=== PATIENT | female | born 1985 | race Caucasian/White ===

== ENCOUNTER 2018-07-03 19:23 | Emergency (ER) | payer BC ==
[~2018-07-03] VITALS: Ht 160 cm; Wt 53.5 kg
--- NOTE | 2018-07-03 19:40 | NUR ---
Pt bib RA83 with from doctor's office due to pt yelling, being uncooperative. Pt AAOx3. Pt denies SI/HI. Denies any other s/s at this time.
--- NOTE | 2018-07-03 19:45 | NUR ---
Norbert trevino in EDM - 07/03/18 at 1952 by ALEX Pt. ambulated into ED w/ c/o SOB and chest tightness 12/09 since today, states she has had a cough since this weekend w/ yellow discharge,
--- NOTE | 2018-07-03 19:50 | NUR ---
Pt agitated, yelling & screaming at staff members. Parents at bedside.
[2018-07-03] MEDS ORDERED: LORAZEPAM 2 MG/1 ML VIAL ONE (19:54)
[2018-07-03] MEDS ORDERED: LORAZEPAM 2 MG/1 ML VIAL IM ONE (20:00)
[2018-07-03 20:08] LABS: BASOPHILS # (AUTO) 0.1 K/uL (0.0-8.0); BASOPHILS % (AUTO) 0.6 % (0.0-2.0); EOSINOPHILS # (AUTO) 0.2 K/uL (0.0-0.7); EOSINOPHILS % (AUTO) 2.2 % (0.0-7.0); HEMOGLOBIN 13.2 g/dL (10.9-14.3); LYMPHOCYTES # (AUTO) 2.4 K/uL (20.0-40.0); LYMPHOCYTES % (AUTO) 26.1 % (20.5-51.5); MEAN CORPUSCULAR HEMOGLOBIN 29.9 uug (24.7-32.8); MEAN CORPUSCULAR HGB CONC 34 g/dL (32.3-35.6); MEAN CORPUSCULAR VOLUME 88.2 fL (75.5-95.3); MONOCYTES # (AUTO) 0.7 K/uL (2.0-10.0); MONOCYTES % (AUTO) 7.2 % (0.0-11.0); NEUTROPHILS # (AUTO) 5.9 K/uL (1.8-8.9); NEUTROPHILS % (AUTO) 63.9 % (38.5-71.5); PLATELET COUNT (AUTO) 229 K/uL (179-408); RED BLOOD CELL COUNT(AUTO) 4.42 MIL/uL (3.63-4.92); WHITE BLOOD COUNT (AUTO) 9.2 K/uL (3.8-11.8)
--- NOTE | 2018-07-03 20:10 | NUR ---
2 [employer] officers & pt's parents at bedside. Pt is resting in bed w headphones on listening to music.
[2018-07-03 20:17] LABS: CARBON DIOXIDE 26 mmol/L (21-32); CHLORIDE 102 mmol/L (98-107); CREATININE 0.8 mg/dL (0.6-1.3); GLUCOSE 123 mg/dL (74-106); POTASSIUM 3.5 mmol/L (3.5-5.1); UREA NITROGEN, BLOOD 11 mg/dL (7-18)
[2018-07-03 20:23] LABS: ALANINE AMINOTRANSFERASE 25 U/L (14-59); ALKALINE PHOSPHATASE 64 U/L (50-136); ASPARTATE AMINOTRANSFERASE 21 U/L (15-37); BILIRUBIN,DIRECT 0.1 mg/dL (0.0-0.2); BILIRUBIN,TOTAL 0.4 mg/dL (0.2-1.0); TOTAL PROTEIN, SERUM 7.3 g/dL (6.4-8.2)
[2018-07-03 20:25] LABS: ETHANOL < 3 MG/DL (0-0)
[2018-07-03] MEDS ORDERED: diphenhydrAMINE 50 MG/1 ML VIAL ONE (20:29)
[2018-07-03] MEDS ORDERED: OLANZAPINE 10 MG VIAL IM ONE ×2 (20:29→20:30)
[2018-07-03] MEDS ORDERED: diphenhydrAMINE 50 MG/1 ML VIAL IM ONE (20:30)
[2018-07-03 20:46] LABS: *AMPHETAMINE, URINE NEGATIVE (NEGATIVE); *BARBITURATE, URINE NEGATIVE (NEGATIVE); *CANNABINOID, URINE POSITIVE (NEGATIVE); *COCCAINE, URINE NEGATIVE (NEGATIVE); *OPIATE, URINE NEGATIVE (NEGATIVE); *PHENCYCLIDINE SCREEN,URINE NEGATIVE (NEGATIVE)
[2018-07-03 20:51] LABS: ACETAMINOPHEN < 2.0 ug/mL (10-30)
--- NOTE | 2018-07-03 21:00 | NUR ---
Harmeet Forbes LCSW, from PET team at bedside to evaluate pt.
--- NOTE | 2018-07-03 21:45 | NUR ---
Pt is resting in bed. Sitter (security) at bedside.
--- NOTE | 2018-07-03 22:11 | NUR ---
Alejandro shields for transport to [facility] ([place]). MICHAEL @ [id number]. Trip#[id number]
--- NOTE | 2018-07-03 22:25 | NUR ---
Gave report to ESTEFANIA Gomez from [facility]
--- NOTE | 2018-07-03 23:26 | NUR ---
[facility] here to transport pt to [facility]. Admitting MD: Dr. Estarda. Pt going to room 256C ([facility]). #for report
== END 2018-07-03 23:30 | disposition short-term general hospital (02) ==
LOC: ER 19:32
DX: Z04.6 Encounter for general psychiatric examination, requested by authority (principal); F79 Unspecified intellectual disabilities; Z88.1 Allergy status to other antibiotic agents
CPT/HCPCS: 36415; 80048; 80076; 80307; 84702; 85025; 96372 ×3; 99285; G0480 ×2; G0481; J1200; J2060; A4663; J2358